=== PATIENT | male | born 1960 | race Caucasian/White ===

== ENCOUNTER 2016-11-10 16:51 | Inpatient (IN) | payer BC ==
[2016-11-10] MEDS ORDERED: SODIUM CHLORIDE 0.9% 1,000 ML IV STA (17:02)
[2016-11-10] MEDS ORDERED: ASPIRIN 81 MG CHEW PO STA (17:11)
[2016-11-10] MEDS ORDERED: CLOPIDOGREL 75 MG TAB PO STA (17:11)
[2016-11-10] MEDS ORDERED: ADENOSINE 3 MG/ML 2 ML VIAL IVP STA (17:14)
[2016-11-10] MEDS ORDERED: HEPARIN SODIUM,PORCINE 5,000 UNIT/ML 1 ML VIAL IV STA (17:18)
[2016-11-10] MEDS ORDERED: LIDOCAINE 2% INJ 20 MG/ML (20 ML MDV) ONE (17:26)
[2016-11-10] MEDS ORDERED: IV FLUID CONTINUATION 300 ML IV ONE (17:30)
[2016-11-10] MEDS ORDERED: MORPHINE SULFATE 4 MG/ML SYRINGE IV PRN (17:32)
[2016-11-10] MEDS ORDERED: NALOXONE 0.4 MG/ML 1 ML VIAL IV PRN (17:32)
[2016-11-10] MEDS ORDERED: ONDANSETRON 4 MG/2 ML VIAL IVP PRN (17:32)
--- NOTE | 2016-11-10 17:32 | ED ---
Chest Pain HPI - General Chief Complaint: Chest Pain Stated Complaint: Cardiac problems Time Seen by Provider: 11/10/16 17:01 Source: patient, EMS Mode of arrival: EMS - History of Present Illness Initial Comments: Patient complains of substernal chest pain. The pain does not radiate anywhere. It is associated with nausea. He feels like he is having trouble seeing because the pain is so severe. The pain does not radiate anywhere. He has no belly pain. He does have palpitations. He has no pain or swelling the legs. He has no headache. He has no recent illnesses or sick contacts. He has not traveled anywhere. He was offered medication for the symptoms by EMS prior to arrival, however he did not want anything at that time. They did try vagal maneuvers with no change in his tachycardia. - Related Data Allergies Allergy/AdvReac Type Severity Reaction Status Date / Time cephalexin [From Keflex] Allergy Unknown Verified 11/10/16 17:23 Sulfa (Sulfonamide Allergy Unknown Verified 11/10/16 17:23 Antibiotics) Review of Systems ROS Statement: Those systems with pertinent positive or pertinent negative responses have been documented in the HPI. ROS Other: All systems not noted in ROS Statement are negative. EKG Findings - EKG Comments: EKG Findings:: Initial twelve-lead EKG is obtained, interpreted by me as showing ventricular rate 165 bpm, no P waves appreciated, the QRS complexes are narrow, interpreted by me as supraventricular tachycardia. Second EKG is obtained postprocedure, interpreted by me as showing ventricular rate of 95 bpm , normal [place] interval Rommel complexes, there are ST elevations in leads aVR and V1, with reciprocal depressions. Interpreted by me as a ST elevation myocardial infarction. Past Medical History Past Medical History: Atrial Fibrillation, Atrial Flutter History of Any Multi-Drug Resistant Organisms: None Reported Additional Past Surgical History / Comment(s): mitral valve repair Past Psychological History: No Psychological Hx Reported General Exam General appearance: alert, in no apparent distress Head exam: Present: atraumatic, normocephalic, normal inspection Eye exam: Present: normal appearance, PERRL, EOMI. Absent: scleral icterus, conjunctival injection, periorbital swelling ENT exam: Present: normal exam, mucous membranes moist Neck exam: Present: normal inspection. Absent: tenderness, meningismus, lymphadenopathy Respiratory exam: Present: normal lung sounds bilaterally. Absent: respiratory distress, wheezes, rales, rhonchi, stridor Cardiovascular Exam: Present: regular rate, normal rhythm, tachycardia, normal heart sounds. Absent: systolic murmur, diastolic murmur, rubs, gallop, clicks GI/Abdominal exam: Present: soft, normal bowel sounds. Absent: distended, tenderness, guarding, rebound, rigid Extremities exam: Present: normal inspection, full ROM, normal capillary refill. Absent: tenderness, pedal edema, joint swelling, calf tenderness Back exam: Present: normal inspection Neurological exam: Present: alert, oriented X3, CN II-XII intact Psychiatric exam: Present: normal affect, normal mood Skin exam: Present: warm, dry, intact, normal color. Absent: rash Course Vital Signs 11/10/16 11/10/16 17:15 17:21 Temperature 96.9 F L Pulse Rate 98 Pulse Rate [ 97 Apical] Respiratory 20 Rate Blood Pressure 109/76 O2 Sat by Pulse 95 Oximetry Chest Pain [facility] Patient initially presents with chest pain, SVT. He is given 6 mg IV adenosine which has converted him into a sinus rhythm. Repeat twelve-lead EKG reveals STEMI. Patient is given aspirin and Plavix, as well as IV heparin bolus. He will be transferred emergently to the cardiac catheterization lab. Disposition Clinical Impression: ST elevation myocardial infarction (STEMI) Disposition: ADMITTED IP TO THIS HOSP Condition: Serious Time of Disposition: 17:32
[2016-11-10 18:01] LABS: Anisocytosis Slight; Basophils % (A) 0 %; CH 29.3; CHCM 31.6; Eosinophils # (A) 0.1 k/uL (0-0.7); Eosinophils % (A) 1 %; HCT 41.8 % (39.0-53.0); HGB 12.9 gm/dL (13.0-17.5); Luc # (Auto) 0.06; Luc % (Auto) 1; Lymphocytes # (A) 0.5 k/uL (1.0-4.8); Lymphocytes % (A) 6 %; MCH 28.8 pg (25.0-35.0); MCHC 30.9 g/dL (31.0-37.0); Mean Platelet Volume 8.6; Monocytes # (A) 0.4 k/uL (0-1.0); Monocytes % (A) 5 %; Neutrophils # (A) 7.4 k/uL (1.3-7.7); Neutrophils % (A) 87 %; RDW 17.1 % (11.5-15.5); WBC 8.5 k/uL (3.8-10.6); WBC (Perox) 8.44
[2016-11-10 18:14] LABS: ALT 58 U/L (21-72); AST 46 U/L (17-59); Alkaline Phosphatase 60 U/L (38-126); Anion Gap 7 mmol/L; Blood Urea Nitrogen 24 mg/dL (9-20); Carbon Dioxide 29 mmol/L (22-30); Chloride 102 mmol/L (98-107); Glucose 184 mg/dL (74-99); Non-African American GFR(MDRD) 59 (>60 ml/min/1.73 sqM); Potassium 5.1 mmol/L (3.5-5.1); Sodium 138 mmol/L (137-145); Total Bilirubin 0.6 mg/dL (0.2-1.3); Total Protein 5.7 g/dL (6.3-8.2)
[2016-11-10 18:17] LABS: Creatine Kinase 102 U/L (55-170); Prothrombin Time 50.9 sec (9.0-12.0)
--- NOTE | 2016-11-10 18:18 | XR ---
EXAMINATION TYPE: XR chest 1V DATE OF EXAM: 11/10/2016 5:32 PM COMPARISON: NONE HISTORY: Pain TECHNIQUE: Single frontal view of the chest is obtained. FINDINGS: EKG leads and sternal sutures are noted. There is no focal air space opacity, pleural effus ion, or pneumothorax seen. The cardiac silhouette size is within normal limits. The osseous struct ures are intact. IMPRESSION: No acute process.
[2016-11-10 18:24] LABS: INR 5.1 (<1.1)
[2016-11-10 18:25] LABS: Partial Thromboplastin Time >200.0 sec (22.0-30.0)
[2016-11-10 18:30] LABS: Troponin I <0.012 ng/mL (0.000-0.034)
[2016-11-10 18:33] LABS: Creatine Kinase MB 3.2 ng/mL (0.0-2.4)
[2016-11-10 19:01] LABS: Glucose,Whole Blood 112 mg/dL (75-99)
[2016-11-10] MEDS ORDERED: AMITRIPTYLINE HCL 50 MG TAB PO SCH (21:00)
[2016-11-10] MEDS ORDERED: ATORVASTATIN 20 MG TAB PO SCH (21:00)
[2016-11-10] MEDS: FAMOTIDINE 20 MG TAB PO SCH (21:03)
[2016-11-10] MEDS: HYDROcodone/APAP 5-325MG 1 EACH TAB PO SCH (21:04)
[2016-11-10] MEDS: METOPROLOL SUCCINATE (ER) 100 MG TAB.ER.24H PO SCH (21:04)
[2016-11-10] MEDS: predniSONE 5 MG TAB PO SCH (21:04)
[2016-11-10 21:36] LABS: Appearance,Urine Clear (Clear); Bilirubin,Urine Negative (Negative); Glucose,Urine (UA) Negative (Negative); Ketones,Urine Negative (Negative); Leukocyte Esterase,Urine Negative (Negative); Nitrite,Urine Negative (Negative); Protein,Urine Negative (Negative); Specific Gravity,Urine 1.008 (1.001-1.035); UA Billing (MACRO vs. MICRO) CHEM; Urobilinogen,Urine <2.0 mg/dL (<2.0)
[2016-11-10 22:09] VITALS: BMI 23.8
[2016-11-11 00:19] LABS: Partial Thromboplastin Time 31.5 sec (22.0-30.0); Prothrombin Time 29.2 sec (9.0-12.0)
[2016-11-11 00:20] LABS: Magnesium 2.2 mg/dL (1.6-2.3)
[2016-11-11 05:33] LABS: Anisocytosis Slight; CH 29.1; CHCM 31.4; HCT 41.9 % (39.0-53.0); HDW 2.21; HGB 12.8 gm/dL (13.0-17.5); MCH 28.5 pg (25.0-35.0); MCHC 30.6 g/dL (31.0-37.0); Mean Platelet Volume 8.3; RBC 4.51 m/uL (4.30-5.90); RDW 17.1 % (11.5-15.5); WBC 7.6 k/uL (3.8-10.6)
[2016-11-11 05:42] LABS: Partial Thromboplastin Time 31.2 sec (22.0-30.0); Prothrombin Time 28.9 sec (9.0-12.0)
[2016-11-11 05:43] LABS: ALT 51 U/L (21-72); AST 24 U/L (17-59); Alkaline Phosphatase 53 U/L (38-126); Anion Gap 5 mmol/L; Blood Urea Nitrogen 20 mg/dL (9-20); Calcium 8.1 mg/dL (8.4-10.2); Carbon Dioxide 29 mmol/L (22-30); Chloride 106 mmol/L (98-107); Glucose 107 mg/dL (74-99); Non-African American GFR(MDRD) >60 (>60 ml/min/1.73 sqM); Potassium 4.2 mmol/L (3.5-5.1); Sodium 140 mmol/L (137-145); Total Bilirubin 0.6 mg/dL (0.2-1.3); Total Protein 5.4 g/dL (6.3-8.2)
--- NOTE | 2016-11-11 07:20 | CONS ---
DATE OF CONSULTATION: Mr. Queen is a 55-year-old gentleman who came to the emergency room with a complaint of blurred vision, chest heaviness and palpitations. When the EMS picked him up, patient was having supraventricular tachycardia. The initial EKG in the emergency room was suggestive of supraventricular tachycardia. The patient was given Rythmol and subsequently patient converted. Repeat EKG showed normal sinus rhythm with diffuse ST-T changes. According to the ER physician, the ER physician interpreted it as a ST segment elevation myocardial infarction and the STEMI team was called in and the patient was brought to the label designer. After I interviewed the patient, further history was obtained from the patient. This patient has a history of mitral valve repair about 10 years ago at the [facility]. In June, patient had initial episode of supraventricular tachycardia and he was cardioverted. Since then, the patient has been followed by ( ). Patient has either an episode of supraventricular tachycardia or atrial fibrillation and patient has been on Coumadin. Patient had diffuse ST segment changes which were thought to be due to the medications because of the recurrent episodes of the supraventricular tachycardia, patient was started on Rythmol. He underwent a stress test 3 days ago that we got the report of it, which did not show any evidence of any significant ischemia. The patient denies any history of exertional chest pain. Patient has a history of rheumatoid arthritis as well as a history of hypertension. There is no previous history of myocardial infarction. Patient's home medications include Toprol XL 100 mg b.i.d., folic acid once a day, methotrexate 20 mg ( ), baby aspirin once a day, Rythmol 150 mg b.i.d., Coumadin, Prozac, prednisone and Humira. Physical examination at present reveal the patient is comfortable without any chest pain. Heart rate is 100. Blood pressure is 130/80 mmHg. Head/ENT examination is negative. Neck is supple. There is no increase in jugular venous pressure. Both the carotid pulses are felt. There is no bruit. Chest is symmetrical. HEART: The PMI is not felt. First and second heart sounds are normal. Lungs are clinically clear to auscultation and percussion. Abdomen is soft. EXTREMITIES: Peripheral pulsations are 2+. EKG shows normal sinus rhythm with diffuse ST segment depression and some ST segment elevation is noted in lead aVR. Patient's INR, the results of the INR were obtained and it is 5.1. FINAL IMPRESSION: This patient presented primarily to the emergency room with what appears to be in supraventricular tachycardia. Patient converted to the normal sinus rhythm. Patient has a diffuse ST segment depression on the EKG, which could be post conversion and it is not significantly changed from the EKG done on the october. Patient had a recent stress test done about 3 days ago, which did not show any evidence of significant ischemia. In view of the absence of any evidence of ST segment elevation myocardial infarction and high INR, we will observe the patient overnight and continue his cardiac medications. Serial troponins will be obtained. I will hold off the Rythmol until we know exactly what is the patient's left ventricular systolic function. Thank you very much for letting me participate in the care of this nice gentleman.
[2016-11-11 08:27] VITALS: TEMP 97.6
[2016-11-11] MEDS: HYDROcodone/APAP 5-325MG 1 EACH TAB PO SCH (08:34)
[2016-11-11] MEDS: FAMOTIDINE 20 MG TAB PO SCH (08:36)
[2016-11-11] MEDS: METOPROLOL SUCCINATE (ER) 100 MG TAB.ER.24H PO SCH (08:37)
[2016-11-11] MEDS: predniSONE 5 MG TAB PO SCH (08:37)
[2016-11-11] MEDS ORDERED: HYDROcodone/APAP 5-325MG 1 EACH TAB PO PRN (08:39)
[2016-11-11] MEDS ORDERED: FOLIC ACID 1 MG TAB PO SCH (09:00)
[2016-11-11] MEDS ORDERED: ASPIRIN 81 MG CHEW PO SCH (09:00)
[2016-11-11] MEDS ORDERED: PANTOPRAZOLE 40 MG TABLET PO SCH (09:00)
[2016-11-11] MEDS ORDERED: CHOLECALCIFEROL 1,000 UNIT TAB PO SCH (09:00)
[2016-11-11] MEDS ORDERED: FLUoxetine HCL 20 MG CAP PO SCH (09:00)
[2016-11-11] MEDS ORDERED: FISH OIL PO SCH (09:00)
[2016-11-11] MEDS ORDERED: ACETAMINOPHEN TAB 325 MG TAB PO PRN (09:25)
[2016-11-11 11:07] VITALS: BP 133/90; PULSE 93; RESP 23
--- NOTE | 2016-11-11 11:40 | P.HPIM ---
History of Present Illness H&P Date: 11/11/16 Chief Complaint: Chest pain with dizziness Is a 58-year-old male, patient of Dr. sands. He has a known past medical history of atrial fibrillation maintained on Coumadin, mitral valve repair about 11 years ago. Possible history of SVT with cardioversion in June. Also history of rheumatoid arthritis and hypertension. Patient was came into the emergency room with complaints of chest pains dizziness and lightheadedness. Also was having some blurred vision. The symptoms happened previously when he had episode of atrial fibrillation with rapid ventricular response. Patient was picked up by EMS and brought into the emergency room. His EKG showed supraventricular tachycardia. He will did receive adenosine. And converted back to sinus rhythm. Repeat EKG had shown normal sinus rhythm with diffuse ST-T wave changes. ER physician was concerned about a possible ST elevation and [place]. STEMI team was called and patient was taken to the [facility]. Cardiology reviewed patient's findings and felt that patient did have diffuse ST segment changes which was likely due to postconversion and is not significant change from EKG done in October 31 per cardiology. Patient also had a stress test about 3 days ago which and no significant of evidence of ischemia. Patient was diagnosed with atrial fibrillation with rapid ventricular response in June as well as SVT he did undergo a cardioversion. He had metoprolol added and then digoxin. His global regulatory lead also then added Rythmol. Due to some EKG changes the digoxin was discontinued. Our global regulatory lead and patients have been in contact with his global regulatory lead out of [place]. At this time they're requesting patient to be discharged and he'll be followed up with his global regulatory lead in the office today. Patient is currently in sinus rhythm with some PACs. Denies any chest pain or shortness of breath. Denies any nausea or vomiting. Denies any bowel movement changes or urinary symptoms. Also note that patient was started on Humara for his rheumatoid arthritis and did not go for his second injection due to it possibly causing him to go into atrial fibrillation. Review of Systems Please refer to HPI otherwise unremarkable Past Medical History Past Medical History: Atrial Fibrillation, Atrial Flutter, GERD/Reflux, Hypertension, Rheumatoid Arthritis (RA) Additional Past Medical History / Comment(s): Mitral valve repair-2004, History of Any Multi-Drug Resistant Organisms: None Reported Additional Past Surgical History / Comment(s): mitral valve repair Past Anesthesia/Blood Transfusion Reactions: No Reported Reaction Past Psychological History: No Psychological Hx Reported Smoking Status: Never smoker Past Alcohol Use History: None Reported Past Drug Use History: None Reported Medications and Allergies Home Medications Medication Instructions Recorded Confirmed Type Amitriptyline HCl [Elavil] 50 mg PO HS 11/10/16 11/10/16 History Aspirin EC [Ecotrin Low Dose] 81 mg PO DAILY 11/10/16 11/10/16 History Cholecalciferol [Vitamin D3] 2,000 unit PO DAILY 11/10/16 11/10/16 History FLUoxetine HCL [PROzac] 40 mg PO DAILY 11/10/16 11/10/16 History Fish Oil(Unknown) 1 cap PO DAILY 11/10/16 11/10/16 History Folic Acid 1 mg PO DAILY 11/10/16 11/10/16 History Hydrocodone/Acetaminophen [[place] 1 tab PO BID 11/10/16 11/10/16 History 5-325] Methotrexate Sodium [Methotrexate] 20 mg PO Q7D 11/10/16 11/10/16 History Metoprolol Succinate [Toprol XL] 100 mg PO BID 11/10/16 11/10/16 History Omeprazole [PriLOSEC] 20 mg PO DAILY 11/10/16 11/10/16 History Rosuvastatin [Crestor] 10 mg PO HS 11/10/16 11/10/16 History predniSONE 5 mg PO BID 11/10/16 11/10/16 History Allergies Allergy/AdvReac Type Severity Reaction Status Date / Time cephalexin [From Keflex] Allergy Unknown Verified 11/10/16 17:23 Sulfa (Sulfonamide Allergy Unknown Verified 11/10/16 17:23 Antibiotics) Physical Exam Vitals: Vital Signs Temp Pulse Resp BP BP Pulse Ox 11/11/16 11:00 93 23 133/90 100 11/11/16 10:00 97 14 144/99 96 11/11/16 09:00 92 20 149/92 98 11/11/16 08:00 97.6 F 90 20 143/99 99 11/11/16 07:00 90 12 135/91 100 11/11/16 06:00 85 9 L 133/90 98 11/11/16 05:00 89 10 L 120/74 95 11/11/16 04:00 94 10 L 134/93 98 11/11/16 03:00 88 10 L 117/88 96 11/11/16 02:00 106 H 18 111/79 95 11/11/16 01:00 86 10 L 97/73 95 11/11/16 00:44 12 11/11/16 00:00 98 F 95 12 81/61 96 11/10/16 23:00 105 H 12 105/72 95 11/10/16 22:00 108 H 23 138/106 95 11/10/16 21:00 90 13 144/102 96 11/10/16 20:00 97.5 F L 94 12 137/103 97 11/10/16 19:00 96 14 124/90 95 11/10/16 17:41 96.9 F L 18 138/106 96 Intake and Output 11/10/16 11/11/16 11/11/16 22:59 06:59 14:59 Intake Total 150 450 200 Output Total 300 600 400 Balance -150 -150 -200 Intake: IV 150 450 200 0.9% 150 450 200 Output: Urine 300 600 400 Other: Voiding Method Toilet Toilet Toilet Urinal Urinal Urinal Weight 86.6 kg 86 kg 86 kg Patient Weight 11/12/16 06:59 Weight 86 kg Head normocephalic Neck supple Lungs clear to auscultation bilaterally no wheezing or crackles Heart regular rate and rhythm S1-S2, no rub or gallop Abdomen is soft nontender nondistended positive bowel sounds no hepatosplenomegaly Extremities no edema Neuro alert and orientated to 3 Results CBC & Chem 7: 11/11/16 05:20 11/11/16 05:20 Labs: Abnormal Lab Results - Last 24 Hours (Table) 11/10/16 11/10/16 11/10/16 Range/Units 17:40 17:40 17:40 Hgb 12.9 L (13.0-17.5) gm/dL MCHC 30.9 L (31.0-37.0) g/dL RDW 17.1 H (11.5-15.5) % Plt Count 126 L (150-450) k/uL Lymphocytes # 0.5 L (1.0-4.8) k/uL PT 50.9 H (9.0-12.0) sec INR 5.1 H* (<1.1) APTT >200.0 H* (22.0-30.0) sec BUN 24 H (9-20) mg/dL Creatinine 1.28 H (0.66-1.25) mg/dL Glucose 184 H (74-99) mg/dL POC Glucose (mg/dL) (75-99) mg/dL Calcium 8.0 L (8.4-10.2) mg/dL CK-MB (CK-2) (0.0-2.4) ng/mL Troponin I (0.000-0.034) ng/mL Total Protein 5.7 L (6.3-8.2) g/dL Albumin 3.3 L (3.5-5.0) g/dL 11/10/16 11/10/16 11/10/16 Range/Units 17:40 18:59 23:51 Hgb (13.0-17.5) gm/dL MCHC (31.0-37.0) g/dL RDW (11.5-15.5) % Plt Count (150-450) k/uL Lymphocytes # (1.0-4.8) k/uL PT (9.0-12.0) sec INR (<1.1) APTT (22.0-30.0) sec BUN (9-20) mg/dL Creatinine (0.66-1.25) mg/dL Glucose (74-99) mg/dL POC Glucose (mg/dL) 112 H (75-99) mg/dL Calcium (8.4-10.2) mg/dL CK-MB (CK-2) 3.2 H* (0.0-2.4) ng/mL Troponin I 0.075 H* (0.000-0.034) ng/mL Total Protein (6.3-8.2) g/dL Albumin (3.5-5.0) g/dL 11/10/16 11/11/16 11/11/16 Range/Units 23:51 05:20 05:20 Hgb 12.8 L (13.0-17.5) gm/dL MCHC 30.6 L (31.0-37.0) g/dL RDW 17.1 H (11.5-15.5) % Plt Count 128 L (150-450) k/uL Lymphocytes # (1.0-4.8) k/uL PT 29.2 H (9.0-12.0) sec INR (<1.1) APTT 31.5 H (22.0-30.0) sec BUN (9-20) mg/dL Creatinine (0.66-1.25) mg/dL Glucose (74-99) mg/dL POC Glucose (mg/dL) (75-99) mg/dL Calcium (8.4-10.2) mg/dL CK-MB (CK-2) (0.0-2.4) ng/mL Troponin I 0.065 H* (0.000-0.034) ng/mL Total Protein (6.3-8.2) g/dL Albumin (3.5-5.0) g/dL 11/11/16 11/11/16 Range/Units 05:20 05:20 Hgb (13.0-17.5) gm/dL MCHC (31.0-37.0) g/dL RDW (11.5-15.5) % Plt Count (150-450) k/uL Lymphocytes # (1.0-4.8) k/uL PT 28.9 H (9.0-12.0) sec INR (<1.1) APTT 31.2 H (22.0-30.0) sec BUN (9-20) mg/dL Creatinine (0.66-1.25) mg/dL Glucose 107 H (74-99) mg/dL POC Glucose (mg/dL) (75-99) mg/dL Calcium 8.1 L (8.4-10.2) mg/dL CK-MB (CK-2) (0.0-2.4) ng/mL Troponin I (0.000-0.034) ng/mL Total Protein 5.4 L (6.3-8.2) g/dL Albumin 3.1 L (3.5-5.0) g/dL Thrombosis Risk Factor Assmnt - Choose All That Apply Any of the Below Risk Factors Present?: Yes Each Factor Represents 1 point: Age 41-60 years Other Risk Factors: No Thrombosis Risk Factor Assessment Total Risk Factor Score: 1 Thrombosis Risk Factor Assessment Level: Low Risk Assessment and Plan Plan: 1. Supraventricular tachycardia: Patient did receive adenosine. He has converted to normal sinus rhythm. 2. Chest pain: EKG changes likely related to his conversion. Evaluated by cardiology. [place] ruled out. Patient had recent stress test about 3 days ago which was negative 3. History of paroxysmal atrial fibrillation: INR 3. Hold Coumadin tonight and recommend restarting Coumadin tomorrow 4. History of rheumatoid arthritis 5. History of mitral valve repair 6. Essential hypertension 7. Acute kidney injury likely related to dehydration improved with IV fluids. Time with Patient: Greater than 30 (Greater than 50% of the total time spent in counseling and coordination of care.I performed an examination of the patient and discussed their management with the physician Cloth Carrier. I have reviewed the Physician Cloth Carrier's notes and agree with the documented findings and plan of care)
--- NOTE | 2016-11-11 11:43 | P.DS ---
Providers Date of admission: 11/10/16 17:32 Expected date of discharge: 11/11/16 Attending physician: Nora Gallego Consults: Dr. Valente Primary care physician: Tiburcio Howard Hospital Course: Discharge diagnosis 1. Supraventricular tachycardia: Patient did receive adenosine. He has converted to normal sinus rhythm. 2. Chest pain: EKG changes likely related to his conversion. Evaluated by cardiology. [place] ruled out. Patient had recent stress test about 3 days ago which was negative 3. History of paroxysmal atrial fibrillation: INR 3. Hold Coumadin tonight and recommend restarting Coumadin tomorrow 4. History of rheumatoid arthritis 5. History of mitral valve repair 6. Essential hypertension 7. Acute kidney injury likely related to dehydration improved with IV fluids. Hospital course Is a 58-year-old male, patient of Dr. howard. He has a known past medical history of atrial fibrillation maintained on Coumadin, mitral valve repair about 11 years ago. Possible history of SVT with cardioversion in June. Also history of rheumatoid arthritis and hypertension. Patient was came into the emergency room with complaints of chest pains dizziness and lightheadedness. Also was having some blurred vision. The symptoms happened previously when he had episode of atrial fibrillation with rapid ventricular response. Patient was picked up by EMS and brought into the emergency room. His EKG showed supraventricular tachycardia. He will did receive adenosine. And converted back to sinus rhythm. Repeat EKG had shown normal sinus rhythm with diffuse ST-T wave changes. ER physician was concerned about a possible ST elevation and [place]. STEMI team was called and patient was taken to the [facility]. Cardiology reviewed patient's findings and felt that patient did have diffuse ST segment changes which was likely due to postconversion and is not significant change from EKG done in October 31 per cardiology. Patient also had a stress test about 3 days ago which and no significant of evidence of ischemia. Patient was diagnosed with atrial fibrillation with rapid ventricular response in June as well as SVT he did undergo a cardioversion. He had metoprolol added and then digoxin. His research archaeologist also then added Rythmol. Due to some EKG changes the digoxin was discontinued. Our research archaeologist and patients have been in contact with his research archaeologist out of [place]. At this time they're requesting patient to be discharged and he'll be followed up with his research archaeologist in the office today. Patient is currently in sinus rhythm with some PACs. Denies any chest pain or shortness of breath. Denies any nausea or vomiting. Denies any bowel movement changes or urinary symptoms. Also note that patient was started on Humara for his rheumatoid arthritis and did not go for his second injection due to it possibly causing him to go into atrial fibrillation. Patient was seen evaluated by her research archaeologist they have ordered echo. Those results will be sent to his research archaeologist. They also recommended to discontinue the Rythmol for now until we know exactly what the patient's left ventricular systolic function is. Cardiology has discussed with patient's research archaeologist out of [place]. At this time they're recommending to discharge patient follow-up with his primary research archaeologist today. We'll defer to patient's research archaeologist in regards to the Rythmol pain restarted. Please refer to chart for any further details. Patient Condition at Discharge: Stable Plan - Discharge Summary Discharge Medication List Amitriptyline HCl [Elavil] 50 mg PO HS 11/10/16 [History] Aspirin EC [Ecotrin Low Dose] 81 mg PO DAILY 11/10/16 [History] Cholecalciferol [Vitamin D3] 2,000 unit PO DAILY 11/10/16 [History] FLUoxetine HCL [PROzac] 40 mg PO DAILY 11/10/16 [History] Fish Oil(Unknown) 1 cap PO DAILY 11/10/16 [History] Folic Acid 1 mg PO DAILY 11/10/16 [History] Hydrocodone/Acetaminophen [[place] 5-325] 1 tab PO BID 11/10/16 [History] Methotrexate Sodium [Methotrexate] 20 mg PO Q7D 11/10/16 [History] Metoprolol Succinate [Toprol XL] 100 mg PO BID 11/10/16 [History] Omeprazole [PriLOSEC] 20 mg PO DAILY 11/10/16 [History] Rosuvastatin [Crestor] 10 mg PO HS 11/10/16 [History] predniSONE 5 mg PO BID 11/10/16 [History] Propafenone [Rythmol] 150 mg PO BID #0 11/11/16 [Rx] Warfarin [Coumadin] 5 mg PO HS #0 11/11/16 [Rx] Follow up Appointment(s)/Referral(s): Tiburcio Howard MD [Primary Care Provider] - 1 Week Activity/Diet/Wound Care/Special Instructions: Patient to Follow up with his Hypo Splasher today after discharge Discharge Disposition: HOME SELF-CARE
--- NOTE | 2016-11-11 11:45 | ECHOF ---
Referral Reason:STEMI MEASUREMENTS -------- HEIGHT: 185.4 cm WEIGHT: 86.2 kg BP: IVSd: 1.1 cm (0.6 - 1.1) LVIDd: 5.4 cm (3.9 - 5.3) LVPWd: 1.1 cm (0.6 - 1.1) IVSs: 1.1 cm LVIDs: 4.4 cm LVPWs: 1.8 cm LAESV Index (A-L): 28.63 ml/m Ao Diam: 3.6 cm (2.0 - 3.7) AV Cusp: 1.4 cm (1.5 - 2.6) LA Diam: 3.2 cm (2.7 - 3.8) RAP: 5.00 mmHg RVSP: 26.32 mmHg FINDINGS -------- Atrial fibrillation. This was a technically good study. Left ventricular wall thickness is normal. There is moderate global hypokinesis of LV . Overall left ventricular systolic function is moderately impaired with, an EF between 35 - 40 %. The right ventricle is normal in size and function. Normal LA size by volume 22+/-6 ml/m2. The right atrium is normal in size. Aortic valve is trileaflet and is mildly thickened. The mitral valve leaflets are mildly thickened. Mild mitral regurgitation is present. MV Repair. Mild tricuspid regurgitation present. The right ventricular systolic pressure, as measured by Doppler, is 26.32mmHg. Pulmonic valve appears structurally normal. The aortic root size is normal. The inferior vena cava is mildly dilated. The pericardium is normal. CONCLUSIONS -------- 1. Atrial fibrillation. 2. The mitral valve leaflets are mildly thickened. 3. Mild mitral regurgitation is present. 4. MV Repair. 5. Mild tricuspid regurgitation present. 6. The right ventricular systolic pressure, as measured by Doppler, is 26.32mmHg. 7. Pulmonic valve appears structurally normal. 8. The aortic root size is normal. 9. The inferior vena cava is mildly dilated. 10. The pericardium is normal. 11. This was a technically good study. 12. Left ventricular wall thickness is normal. 13. There is moderate global hypokinesis of LV . 14. Overall left ventricular systolic function is moderately impaired with, an EF between 35 - 40 %. 15. The right ventricle is normal in size and function. 16. Normal LA size by volume 22+/-6 ml/m2. 17. The right atrium is normal in size. 18. Aortic valve is trileaflet and is mildly thickened. SOFTWARE SUPPORT TECHNICIAN: Renetta Abdi RDCS
--- NOTE | 2016-11-12 00:20 | P.PN ---
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 The EKG showed diffuse ST segment changes initially was concerning for ischemia but reviewing the previous EKG showed no acute changes. The patient is known to have paroxysmal atrial fibrillation and he is on antiarrhythmic medication along with Coumadin. The patient would like to be transferred to another facility where he would like to follow-up with his casting tester. He denies having any chest pain or discomfort or difficulty breathing or heart racing or fluttering. Objective - Vital Signs Vital signs: Vital Signs Temp 97.6 F 11/11/16 08:00 Pulse 93 11/11/16 11:00 Resp 23 11/11/16 11:00 BP 133/90 11/11/16 11:00 Pulse Ox 100 11/11/16 11:00 Intake & Output 11/11/16 11/11/16 11/12/16 06:59 18:59 06:59 Intake Total 600 200 Output Total 900 400 Balance -300 -200 Weight 86 kg 86 kg Intake: IV 600 200 0.9% 600 200 Output: Urine 900 400 Other: Voiding Method Toilet Toilet Urinal Urinal - Constitutional General appearance: Present: no acute distress - Cardiovascular Rhythm: irregularly irregular Heart sounds: normal: S1, S2 - Labs CBC & Chem 7: 11/11/16 05:20 11/11/16 05:20 Labs: Abnormal Lab Results - Last 24 Hours (Table) 11/10/16 11/10/16 11/11/16 Range/Units 23:51 23:51 05:20 Hgb (13.0-17.5) gm/dL MCHC (31.0-37.0) g/dL RDW (11.5-15.5) % Plt Count (150-450) k/uL PT 29.2 H (9.0-12.0) sec APTT 31.5 H (22.0-30.0) sec Glucose (74-99) mg/dL Calcium (8.4-10.2) mg/dL Troponin I 0.075 H* 0.065 H* (0.000-0.034) ng/mL Total Protein (6.3-8.2) g/dL Albumin (3.5-5.0) g/dL 11/11/16 11/11/16 11/11/16 Range/Units 05:20 05:20 05:20 Hgb 12.8 L (13.0-17.5) gm/dL MCHC 30.6 L (31.0-37.0) g/dL RDW 17.1 H (11.5-15.5) % Plt Count 128 L (150-450) k/uL PT 28.9 H (9.0-12.0) sec APTT 31.2 H (22.0-30.0) sec Glucose 107 H (74-99) mg/dL Calcium 8.1 L (8.4-10.2) mg/dL Troponin I (0.000-0.034) ng/mL Total Protein 5.4 L (6.3-8.2) g/dL Albumin 3.1 L (3.5-5.0) g/dL Assessment and Plan Plan: Assessment #1 paroxysmal atrial fibrillation Plan #1 the patient is going to be transferred.
[2016-11-12] MEDS ORDERED: METHOTREXATE SODIUM 2.5 MG TAB PO SCH (12:00)
== END 2016-11-11 12:18 | disposition home or self-care (01) | DRG 309 ==
LOC: EC 16:51 → 6ICU 17:32
PROVIDERS: ADMIT Internal Medicine; ATTEND Internal Medicine
DX: I47.1 Supraventricular tachycardia (principal); N17.9 Acute kidney failure, unspecified; I48.92 Unspecified atrial flutter; I10 Essential (primary) hypertension; I48.0 Paroxysmal atrial fibrillation; E86.0 Dehydration; K21.9 Gastro-esophageal reflux disease without esophagitis; M06.9 Rheumatoid arthritis, unspecified; Z79.01 Long term (current) use of anticoagulants; Z79.82 Long term (current) use of aspirin; Z79.891 Long term (current) use of opiate analgesic; Z79.52 Long term (current) use of systemic steroids; Z79.899 Other long term (current) drug therapy
CPT/HCPCS: 71010; 80053; 81003; 82550; 82553; 83690; 83735; 83880; 84484; 85025; 85027; 85610; 85730; 93005; 93306; 93458; 96374; 99291